=== PATIENT | female | born 1940 | race Caucasian/White ===

== ENCOUNTER 2017-02-23 02:14 | Emergency (ER) | payer MEDICARE, OTHER | END 2017-02-23 03:04 | disposition home or self-care (01) | LOC: ED 02:14 | DX: T81.30XA Disruption of wound, unspecified, initial encounter (principal); I10 Essential (primary) hypertension; Y75.1 Therapeutic (nonsurgical) and rehabilitative neurological devices associated with adverse incidents; Y92.9 Unspecified place or not applicable; Y84.8 Other medical procedures as the cause of abnormal reaction of the patient, or of later complication, without mention of misadventure at the time of the procedure ==